=== PATIENT | male | born 1975 | race Caucasian/White ===

== ENCOUNTER 2018-02-10 20:38 | Inpatient (IN) | payer MEDICAID ==
[~2018-02-10] VITALS: Ht 175.3 cm; Wt 107.0 kg
[2018-02-10 20:58] VITALS: BP 177/96; PULSE 64; RESP 24; O2SAT 100
[2018-02-10 21:12] VITALS: BP 166/155; PULSE 61; RESP 16; O2SAT 99
[2018-02-10] MEDS ORDERED: NITROGLYCERIN 2% OINT 1 GM PACKET TOP ONE (21:15)
[2018-02-10] MEDS ORDERED: MORPHINE SULFATE 4 MG/ML INJ IV PUSH ONE (21:15)
[2018-02-10] MEDS ORDERED: SODIUM CHLORIDE 0.9% FLUSH 10 ML FLUSH IVF PRN (21:15)
[2018-02-10] MEDS: METOPROLOL TARTRATE 5 MG/5 ML VIAL IVS SCH ×3 (21:15→21:25)
[2018-02-10] MEDS ORDERED: SODIUM CHLORID 0.9% 500 ML INJ 500 ML IV ONE (21:15)
[2018-02-10 21:19] VITALS: BP_SYST 143; BP_SYST 146; BP_DIAS 89; BP_DIAS 99; O2SAT 100
[2018-02-10] MEDS ORDERED: HEPARIN SODIUM - IV 10,000 UNITS/10 ML VIAL IV PUSH ONE (21:30)
[2018-02-10] MEDS ORDERED: HEPARIN-D5W 25,000 U/250 ML 250 ML IV PRN (21:30)
--- NOTE | 2018-02-10 21:32 | PD ---
HPI Chief Complaint: Chest Pain Time Seen by Provider: 21:07 Travel History International Travel<30 days: No Contact w/Intl Traveler<30days: No Traveled to known affect area: No History of Present Illness HPI 42-year-old male previously seen at [place] in the ED, and found to have a slightly elevated troponin 0 0.08, and questionable ST changes on his EKG. Patient was going to be admitted, but did not want to travel by ambulance , and left AMA and traveled here. Patient was given aspirin, and nitroglycerin paste with improvement of his symptoms. Patient continues to have chest tightness but no pain at this time. He states his pain started this morning after working out at the gym and continued through the day. He states left arm pain yesterday which was different than normal. He noticed he was hypertensive through the day today which is why he went to the emergency department to be checked. He has family history of early cardiac disease in his family. Patient has no previous cardiac history. He is allergic to shrimp and iodine. [facility] Past Medical History Medical History: Denies Significant Hx Tetanus Vaccination: > 5 Years Influenza Vaccination: No ?: Not Past Surgical History Surgical History: No Previous Surgery Social History Alcohol Use: Yes (OCC) Tobacco Use: No Substance Use: No Allergies-Medications (Allergen,Severity, Reaction): Coded Allergies: iodine (Verified Allergy, Severe, 02/10/18) shrimp (Verified Allergy, Severe, 02/10/18) Reported Meds & Prescriptions Reported Meds & Active Scripts Active No Active Prescriptions or Reported Medications Review of Systems Except as stated in HPI: all other systems reviewed are Neg General / Constitutional: No: Fever Eyes: No: Visual changes HENT: No: Headaches Cardiovascular: Positive: Chest Pain or Discomfort, Dyspnea on exertion, Other (Left arm ache), No: Palpitations, Irregular Rhythm, Tachycardia, Diaphoresis, Syncope, Varicosities, Edema, Cyanosis, Varicosities, Phlebitis, Claudication Respiratory: No: Cough, Shortness of Breath, Wheezing Gastrointestinal: No: Nausea, Abdominal Pain Genitourinary: No: Dysuria Musculoskeletal: No: Pain Skin: No Rash Neurologic: No: Weakness Psychiatric: No: Depression Endocrine: No: Polydipsia Hematologic/Lymphatic: No: Easy Bruising Physical Exam Narrative GENERAL: Patient appears mildly anxious but otherwise in no acute distress. SKIN: Warm and dry. Normal color. Normal turgor. No diaphoresis. HEAD: Atraumatic. Normocephalic. EYES: Pupils equal and round. No scleral icterus. No injection or drainage. ENT: No nasal bleeding or discharge. Mucous membranes pink and moist. Pharynx is clear. Airway is patent NECK: Trachea midline. No JVD. Supple and nontender. CARDIOVASCULAR: Regular rate and rhythm. No murmurs gallops or rubs. RESPIRATORY: No accessory muscle use. Clear to auscultation. Breath sounds equal bilaterally. MUSCULOSKELETAL: Extremities without clubbing, cyanosis, or edema. No obvious deformities. NEUROLOGICAL: Awake and alert. No obvious cranial nerve deficits. Motor grossly within normal limits. Five out of 5 muscle strength in the arms and legs. Normal speech. PSYCHIATRIC: Appropriate mood and affect; insight and judgment normal. Data Data Last Documented VS Vital Signs Date Time Temp Pulse Resp B/P (MAP) Pulse Ox O2 Delivery O2 Flow Rate FiO2 02/10/18 21:19 146/99 (115) 143/89 (107) 02/10/18 21:19 100 Room Air 02/10/18 21:12 61 16 Orders Orders Electrocardiogram (02/10/18 21:11) Ckmb (Isoenzyme) Profile (02/10/18 21:11) Complete Blood Count With Diff (02/10/18 21:11) Comprehensive Metabolic Panel (02/10/18 21:11) Magnesium (Mg) (02/10/18 21:11) Prothrombin Time / Inr (Pt) (02/10/18 21:11) Act Partial Throm Time (Ptt) (02/10/18 21:11) Troponin I (02/10/18 21:11) Ecg Monitoring (02/10/18 21:11) Bilateral Bp Monitoring (02/10/18 21:11) Iv Access Insert/Monitor (02/10/18 21:11) Oximetry (02/10/18 21:11) Oxygen Administration (02/10/18 21:11) Morphine Inj (Morphine Inj) (02/10/18 21:15) Nitroglycerin 2% Oint (Nitroglycerin 2% (02/10/18 21:15) Sodium Chloride 0.9% Flush (Ns Flush) (02/10/18 21:15) Metoprolol Tartrate Inj (Lopressor Inj) (02/10/18 21:15) Sodium Chlorid 0.9% 500 Ml Inj (Ns 500 M (02/10/18 21:15) Heparin Inj (Heparin Inj) (02/11/18 03:30) Heparin Inj (Heparin Inj) (02/10/18 21:30) Heparin Inj (Heparin Inj) (02/11/18 03:30) Heparin-D5w 25,000 U/250 Ml (Heparin-D5w (02/10/18 21:30) Act Partial Throm Time (Ptt) (02/10/18 21:20) Prothrombin Time / Inr (Pt) (02/10/18 21:20) Cbc No Diff, Includes Plts (02/10/18 21:20) Cbc No Diff, Includes Plts (02/13/18 06:00) Act Partial Throm Time (Ptt) (02/11/18 04:20) Occult Blood (Hemoccult) Stool (02/10/18 21:20) CKMB (02/10/18 21:20) CKMB% (02/10/18 21:20) Consult Cardiology (02/10/18 ) Labs Laboratory Tests Test 02/10/18 21:20 White Blood Count 8.1 TH/MM3 Red Blood Count 5.35 MIL/MM3 Hemoglobin 14.7 GM/DL Hematocrit 44.8 % Mean Corpuscular Volume 83.7 FL Mean Corpuscular Hemoglobin 27.5 PG Mean Corpuscular Hemoglobin Concent 32.9 % Red Cell Distribution Width 13.4 % Platelet Count 147 TH/MM3 Mean Platelet Volume 11.3 FL Neutrophils (%) (Auto) 60.0 % Lymphocytes (%) (Auto) 30.4 % Monocytes (%) (Auto) 8.1 % Eosinophils (%) (Auto) 1.0 % Basophils (%) (Auto) 0.5 % Neutrophils # (Auto) 4.9 TH/MM3 Lymphocytes # (Auto) 2.5 TH/MM3 Monocytes # (Auto) 0.7 TH/MM3 Eosinophils # (Auto) 0.1 TH/MM3 Basophils # (Auto) 0.0 TH/MM3 CBC Comment DIFF FINAL Differential Comment Prothrombin Time 10.6 SEC Prothromb Time International Ratio 1.0 RATIO Activated Partial Thromboplast Time 24.6 SEC Blood Urea Nitrogen 23 MG/DL Creatinine 1.37 MG/DL Random Glucose 95 MG/DL Total Protein 6.8 GM/DL Albumin 4.1 GM/DL Calcium Level 8.9 MG/DL Magnesium Level 2.4 MG/DL Alkaline Phosphatase 87 U/L Aspartate Amino Transf (AST/SGOT) 29 U/L Alanine Aminotransferase (ALT/SGPT) 53 U/L Total Bilirubin 0.5 MG/DL Sodium Level 142 MEQ/L Potassium Level 3.5 MEQ/L Chloride Level 108 MEQ/L Carbon Dioxide Level 25.4 MEQ/L Anion Gap 9 MEQ/L Estimat Glomerular Filtration Rate 58 ML/MIN Total Creatine Kinase 190 U/L Creatine Kinase MB 3.1 NG/ML Troponin I 0.07 NG/ML MDM Medical Decision Making Medical Screen Exam Complete: Yes Emergency Medical Condition: Yes Medical Record Reviewed: Yes Differential Diagnosis Unstable angina. Acute coronary syndrome. SC. Narrative Course Patient appears medically stable at time of exam. EKG is repeated with ST elevations in the ventricle leads are noted and more pronounced than previous EKG at 1854. Labs are repeated including CBC, CMP, cardiac panel and coagulation studies. IV access is obtained and the patient is given 2 mg morphine IV, 5 mg metoprolol IV 3 per protocol, and 1 inch nitroglycerin paste is placed topically. Patient is discussed with Dr. Andrade who recommends heparinization. IV heparin is ordered per protocol for SC with loading bolus. Chest x-ray is not repeated as he just had one until toenail which was unremarkable. CBC is unremarkable except for a platelet count of 147. Coagulation studies show PT of 10.6, INR is 1.0, APTT is 24.6 Chemistries show normal electrolytes except for chloride of 108, BUNs 23, creatinine is 1.37, GFR is 58. Second troponin is still elevated at 0.[address] Huitron, the washery boss and the patient is discussed. He feels the patient should be heparinized, continued on nitroglycerin paste, but beta-maximino should be held secondary to the patient's low heart rate. He recommends admitting the patient for serial enzymes and he will follow-up with them in the morning. Consult for Dr. Huitron is placed. Calls placed to the hospitalist for admission. Diagnosis Primary Impression: ACS (acute coronary syndrome) Additional Impressions: Elevated troponin NSTEMI (non-ST elevated myocardial infarction) Admitting Information Admitting Physician Requests: Admit Scripts No Active Prescriptions or Reported Meds Condition: Stable Yoselyn,Serjio F. PA Feb 10, 2018 21:32
--- NOTE | 2018-02-10 21:35 | PD ---
Physical Exam Narrative GENERAL: SKIN: Warm and dry. HEAD: Atraumatic. Normocephalic. EYES: Pupils equal and round. No scleral icterus. No injection or drainage. ENT: No nasal bleeding or discharge. Mucous membranes pink and moist. NECK: Trachea midline. No JVD. CARDIOVASCULAR: Regular rate and rhythm. RESPIRATORY: No accessory muscle use. Clear to auscultation. Breath sounds equal bilaterally. GASTROINTESTINAL: Abdomen soft, non-tender, nondistended. MUSCULOSKELETAL: Extremities without clubbing, cyanosis, or edema. No obvious deformities. NEUROLOGICAL: Awake and alert. No obvious cranial nerve deficits. Motor grossly within normal limits. Five out of 5 muscle strength in the arms and legs. Normal speech. PSYCHIATRIC: Appropriate mood and affect; insight and judgment normal. Data Data Last Documented VS Vital Signs Date Time Temp Pulse Resp B/P (MAP) Pulse Ox O2 Delivery O2 Flow Rate FiO2 02/10/18 21:19 146/99 (115) 143/89 (107) 02/10/18 21:19 100 Room Air 02/10/18 21:12 61 16 Orders Orders Electrocardiogram (02/10/18 21:11) Ckmb (Isoenzyme) Profile (02/10/18 21:11) Complete Blood Count With Diff (02/10/18 21:11) Comprehensive Metabolic Panel (02/10/18 21:11) Magnesium (Mg) (02/10/18 21:11) Prothrombin Time / Inr (Pt) (02/10/18 21:11) Act Partial Throm Time (Ptt) (02/10/18 21:11) Troponin I (02/10/18 21:11) Ecg Monitoring (02/10/18 21:11) Bilateral Bp Monitoring (02/10/18 21:11) Iv Access Insert/Monitor (02/10/18 21:11) Oximetry (02/10/18 21:11) Oxygen Administration (02/10/18 21:11) Morphine Inj (Morphine Inj) (02/10/18 21:15) Nitroglycerin 2% Oint (Nitroglycerin 2% (02/10/18 21:15) Sodium Chloride 0.9% Flush (Ns Flush) (02/10/18 21:15) Metoprolol Tartrate Inj (Lopressor Inj) (02/10/18 21:15) Sodium Chlorid 0.9% 500 Ml Inj (Ns 500 M (02/10/18 21:15) Heparin Inj (Heparin Inj) (02/11/18 03:30) Heparin Inj (Heparin Inj) (02/10/18 21:30) Heparin Inj (Heparin Inj) (02/11/18 03:30) Heparin-D5w 25,000 U/250 Ml (Heparin-D5w (02/10/18 21:30) Act Partial Throm Time (Ptt) (02/10/18 21:20) Prothrombin Time / Inr (Pt) (02/10/18 21:20) Cbc No Diff, Includes Plts (02/10/18 21:20) Cbc No Diff, Includes Plts (02/13/18 06:00) Act Partial Throm Time (Ptt) (02/11/18 04:20) Occult Blood (Hemoccult) Stool (02/10/18 21:20) MDM Medical Record Reviewed: Yes Supervised Visit with SAMMY: Yes Narrative Course I, Dr. BROWN, have reviewed the advance practice practitioner's documentation and am in agreement, met with the patient face to face, made the diagnosis, and the medical decision making was done by me. The patient was initially evaluated by [SHAUN]. Please see their complete history and physical. *My assessment and Findings: The patient presents with During the course of the patient's emergency department visit, the patient's history, examination, and differential diagnosis were reviewed with the patient. The patient was placed on a security monitor with oximetry and frequent blood pressure monitoring. The patient had IV access obtained and blood work sent for analysis. The patient was initially provided [METOPROLOL 5MG IV PER PROTOCOL, 1 INCH NTG PASTE, MORPHINE 2MG IV, heparin bolus and drip]. The patient's laboratory studies were reviewed and remarkable for [CBC did not show any leukocytosis anemia or thrombocytosis, platelet count was normal no left shift..... Coagulation profile is within normal limits..... Electrolytes show elevated creatinine 1.4, slightly low GFR 56, also CK-MB of 4.0 and troponin of 0.08 both of which are slightly elevated]. Of note the patient is states that he has allergy to shrimp/iodine Radiology studies were reviewed and remarkable for [chest x-ray performed melatonin ER and read by radiologist as no acute disease] Scripts No Active Prescriptions or Reported Meds Bertin Brown MD Feb 10, 2018 21:35
[2018-02-10 21:43] LABS: AUTOMATED NEUTROPHIL # 4.9 TH/MM3 (1.8-7.7); BASOPHIL % 0.5 % (0.0-2.0); EOSINOPHIL # 0.1 TH/MM3 (0-0.4); HEMATOCRIT 44.8 % (39.0-51.0); HEMOGLOBIN 14.7 GM/DL (13.0-17.0); LYMPH % 30.4 % (9.0-44.0); LYMPHOCYTE # 2.5 TH/MM3 (1.0-4.8); MEAN CELL VOLUME 83.7 FL (80.0-100.0); MEAN CORPUSCULAR HEMOGLOBIN 27.5 PG (27.0-34.0); MEAN CORPUSCULAR HGB CONC 32.9 % (32.0-36.0); MEAN PLATELET VOLUME 11.3 FL (7.0-11.0); MONO % 8.1 % (0.0-8.0); MONOCYTE # 0.7 TH/MM3 (0-0.9); PLATELET COUNT 147 TH/MM3 (150-450); RED BLOOD COUNT 5.35 MIL/MM3 (4.50-5.90); RED CELL DISTRIBUTION WIDTH 13.4 % (11.6-17.2); WHITE BLOOD COUNT 8.1 TH/MM3 (4.0-11.0)
[2018-02-10 21:59] LABS: PROTHROMBIN TIME - PATIENT 10.6 SEC (9.8-11.6)
[2018-02-10 22:04] LABS: ALBUMIN 4.1 GM/DL (3.4-5.0); BICARBONATE 25.4 MEQ/L (21.0-32.0); BLOOD UREA NITROGEN 23 MG/DL (7-18); CALCIUM 8.9 MG/DL (8.5-10.1); CHLORIDE 108 MEQ/L (98-107); CREATININE 1.37 MG/DL (0.60-1.30); GLOMERULAR FILTRATION RATE 58 ML/MIN (>89); GLUCOSE,RANDOM 95 MG/DL (74-106); MAGNESIUM 2.4 MG/DL (1.5-2.5); SODIUM (NA) 142 MEQ/L (136-145)
[2018-02-10 22:06] LABS: ALT (GPT) 53 U/L (12-78); AST (GOT) 29 U/L (15-37)
[2018-02-10 22:10] LABS: ALKALINE PHOSPHATASE 87 U/L (45-117); TOTAL BILIRUBIN ADULT 0.5 MG/DL (0.2-1.0); TOTAL PROTEIN 6.8 GM/DL (6.4-8.2); TROPONIN I 0.07 NG/ML (0.02-0.05)
[2018-02-10 23:00] VITALS: BP 136/75; PULSE 68; RESP 16; O2SAT 98
[2018-02-10] MEDS ORDERED: SODIUM CHLORIDE 0.9% FLUSH 10 ML FLUSH IV FLUSH PRN (23:00)
[2018-02-10] MEDS ORDERED: NALOXONE HCL 0.4 MG/ML AMP IV PUSH PRN (23:00)
[2018-02-10] MEDS ORDERED: ASPIRIN 325 MG TAB PO SCH (23:00)
[2018-02-10] MEDS: SODIUM CHLOR 0.9% 1000 ML INJ 1,000 ML IV SCH (23:52)
--- NOTE | 2018-02-10 23:54 | HHI.HP ---
[facility] Unknown Admission Diagnosis CHest pain with Elevated Troponin Diagnoses: Travel History International Travel<30 Days: No Contact w/Intl Traveler <30 Da: No Traveled to Known Affected Are: No History of Present Illness 42-year-old male with no significant past medical history presents the emergency department for the evaluation of chest tightness. The patient reports he was taking his blood pressure at home yesterday and it was 180s/ 100s. He then began to have a substernal nonradiating chest tightness which persisted through today. He went to the [facility] emergency department where he was found to be hypertensive and have an elevated troponin of 0.08. The patient then drove to [facility] where repeat troponin was 0.07. He reports his chest pain was relieved with nitro patch. The patient denies any accompanying diaphoresis or shortness of breath. No palpitations. No fever/chills. No abdominal pain. No nausea/vomiting/diarrhea. No lateralizing signs/symptoms. The patient reports he went to the gym this morning and ran 4 miles on the treadmill without incident. Review of Systems Except as stated in HPI: all other systems reviewed are Neg Past Family Social History Past Medical History None Past Surgical History None Reported Medications Reported Meds & Active Scripts Active No Active Prescriptions or Reported Medications Allergies: Coded Allergies: iodine (Verified Allergy, Severe, 02/10/18) shrimp (Verified Allergy, Severe, 02/10/18) Family History Father with CAD Social History Occasional alcohol. Denies tobacco and illicit drugs. Physical Exam Vital Signs Vital Signs Date Time Temp Pulse Resp B/P (MAP) Pulse Ox O2 Delivery O2 Flow Rate FiO2 02/10/18 23:39 02/10/18 23:00 68 16 136/75 (95) 98 Room Air 02/10/18 21:19 146/99 (115) 143/89 (107) 02/10/18 21:19 100 Room Air 02/10/18 21:12 61 16 166/155 (159) 99 Room Air 02/10/18 20:58 64 24 177/96 (123) 100 Physical Exam GENERAL: male sitting up in bed SKIN: No rashes, ecchymoses or lesions. Cool and dry. HEAD: Atraumatic. Normocephalic. No temporal or scalp tenderness. EYES: Pupils equal round and reactive. Extraocular motions intact. No scleral icterus. No injection or drainage. ENT: Nose without bleeding, purulent drainage or septal hematoma. Throat without erythema, tonsillar hypertrophy or exudate. Uvula midline. Airway patent. NECK: Trachea midline. No JVD or lymphadenopathy. Supple, nontender, no meningeal signs. CARDIOVASCULAR: Regular rate and rhythm without murmurs, gallops, or rubs. RESPIRATORY: Clear to auscultation. Breath sounds equal bilaterally. No wheezes , rales, or rhonchi. GASTROINTESTINAL: Abdomen soft, non-tender, nondistended. No hepato-splenomegaly , or palpable masses. No guarding. MUSCULOSKELETAL: Extremities without clubbing, cyanosis, or edema. No joint tenderness, effusion, or edema noted. No calf tenderness. NEUROLOGICAL: Awake and alert. Cranial nerves II through XII intact. Motor and sensory grossly within normal limits. Normal speech. Laboratory Laboratory Tests Test 02/10/18 21:20 White Blood Count 8.1 Red Blood Count 5.35 Hemoglobin 14.7 Hematocrit 44.8 Mean Corpuscular Volume 83.7 Mean Corpuscular Hemoglobin 27.5 Mean Corpuscular Hemoglobin Concent 32.9 Red Cell Distribution Width 13.4 Platelet Count 147 Mean Platelet Volume 11.3 Neutrophils (%) (Auto) 60.0 Lymphocytes (%) (Auto) 30.4 Monocytes (%) (Auto) 8.1 Eosinophils (%) (Auto) 1.0 Basophils (%) (Auto) 0.5 Neutrophils # (Auto) 4.9 Lymphocytes # (Auto) 2.5 Monocytes # (Auto) 0.7 Eosinophils # (Auto) 0.1 Basophils # (Auto) 0.0 CBC Comment DIFF FINAL Differential Comment Prothrombin Time 10.6 Prothromb Time International Ratio 1.0 Activated Partial Thromboplast Time 24.6 Blood Urea Nitrogen 23 Creatinine 1.37 Random Glucose 95 Total Protein 6.8 Albumin 4.1 Calcium Level 8.9 Magnesium Level 2.4 Alkaline Phosphatase 87 Aspartate Amino Transf (AST/SGOT) 29 Alanine Aminotransferase (ALT/SGPT) 53 Total Bilirubin 0.5 Sodium Level 142 Potassium Level 3.5 Chloride Level 108 Carbon Dioxide Level 25.4 Anion Gap 9 Estimat Glomerular Filtration Rate 58 Total Creatine Kinase 190 Creatine Kinase MB 3.1 Troponin I 0.07 Result Diagram: 02/10/18211902/10/182119 Caprini VTE Risk Assessment Arian VTE Risk Assessment: No/Low Risk (score <= 1) Evansrini Risk Assessment Model Point Value = 1 Point Value = 2 Point Value = 3 Point Value = 5 Age 41-60 Minor surgery BMI > 25 kg/m2 Swollen legs Varicose veins or History of unexplained or recurrent spontaneous Oral contraceptives or hormone replacement Sepsis (< 1 month) Serious lung disease, including pneumonia (< 1 month) Abnormal pulmonary function Acute myocardial infarction Congestive heart failure (< 1 month) History of inflammatory bowel disease Medical patient at bed rest Age 61-74 Arthroscopic surgery Major open surgery (> 45 min) Laparoscopic surgery (> 45 min) Malignancy Confined to bed (> 72 hours) Immobilizing plaster cast Central venous access Age >= 75 History of VTE Family history of VTE Factor V Leiden Prothrombin [id number] Lupus anticoagulant Anticardiolipin antibodies Elevated serum homocysteine Heparin-induced thrombocytopenia Other congenital or acquired thrombophilia Stroke (< 1 month) Elective arthroplasty Hip, pelvis, or leg fracture Acute spinal cord injury (< 1 month) Prophylaxis Regimen Total Risk Factor Score Risk Level Prophylaxis Regimen 0-1 Low Early ambulation 2 Moderate Order ONE of the following: *Sequential Compression Device (SCD) *Heparin 5000 units SQ BID 3-4 Higher Order ONE of the following medications: *Heparin 5000 units SQ TID *Enoxaparin/Lovenox 40 mg SQ daily (WT < 150 kg, CrCl > 30 mL/min) *Enoxaparin/Lovenox 30 mg SQ daily (WT < 150 kg, CrCl > 10-29 mL/min) *Enoxaparin/Lovenox 30 mg SQ BID (WT < 150 kg, CrCl > 30 mL/min) AND/OR *Sequential Compression Device (SCD) 5 or more Highest Order ONE of the following medications: *Heparin 5000 units SQ TID (Preferred with Epidurals) *Enoxaparin/Lovenox 40 mg SQ daily (WT < 150 kg, CrCl > 30 mL/min) *Enoxaparin/Lovenox 30 mg SQ daily (WT < 150 kg, CrCl > 10-29 mL/min) *Enoxaparin/Lovenox 30 mg SQ BID (WT < 150 kg, CrCl > 30 mL/min) AND *Sequential Compression Device (SCD) Assessment and Plan Assessment and Plan Assessment/plan: 1. NSTEMI EKG shows sinus bradycardia without ST segment elevations or depressions, personally reviewed Troponin 0.08 -->0.07, repeat pending Cardiology consulted, appreciate assistance Heparin bolus and drip 2. Acute kidney injury BUN/creatinine 23/1.37 No baseline for comparison IV fluid hydration Monitor renal function FEN N.p.o. NS at 84 cc/hour Electrolytes: Monitor and replete as needed Heparin drip Physician Certification 2 Midnight Certification Type: Admission for Inpatient Services Order for Inpatient Services The services are ordered in accordance with Medicare regulations or non- Medicare payer requirements, as applicable. In the case of services not specified as inpatient-only, they are appropriately provided as inpatient services in accordance with the 2-midnight benchmark. Estimated LOS (days): 2 2 days is the estimated time the patient will need to remain in the hospital, assuming treatment plan goals are met and no additional complications. Post-Hospital Plan: Not yet determined Kendal Sebastian MD Feb 10, 2018 23:54
[2018-02-10 23:57] VITALS: BP 121/78; PULSE 53; RESP 16; TEMP 97.5; O2SAT 99
[2018-02-11 01:00] VITALS: PULSE 45
[2018-02-11] MEDS ORDERED: HEPARIN SODIUM - IV 10,000 UNITS/10 ML VIAL IV PUSH PRN ×2 (03:30)
[2018-02-11 04:03] VITALS: BP 151/92; PULSE 62; RESP 16; O2SAT 100
[2018-02-11] MEDS ORDERED: ACETAMINOPHEN 325 MG TAB PO PRN (04:15)
[2018-02-11] MEDS ORDERED: ALPRAZolam 0.25 MG TAB PO ONE (04:15)
[2018-02-11 04:20] VITALS: BP 134/87; PULSE 53; RESP 16; TEMP 97.3; O2SAT 100
[2018-02-11] MEDS: NITROGLYCERIN 2% OINT 1 GM PACKET TOP SCH ×2 (04:25→12:00)
[2018-02-11 05:12] LABS: AUTOMATED NEUTROPHIL # 3.2 TH/MM3 (1.8-7.7); BASOPHIL % 0.5 % (0.0-2.0); EOSINOPHIL # 0.1 TH/MM3 (0-0.4); EOSINOPHIL % 1.4 % (0.0-4.0); LYMPH % 40.1 % (9.0-44.0); LYMPHOCYTE # 2.6 TH/MM3 (1.0-4.8); MEAN CELL VOLUME 84.3 FL (80.0-100.0); MEAN CORPUSCULAR HEMOGLOBIN 28.1 PG (27.0-34.0); MEAN CORPUSCULAR HGB CONC 33.3 % (32.0-36.0); MEAN PLATELET VOLUME 11.3 FL (7.0-11.0); MONO % 7.2 % (0.0-8.0); MONOCYTE # 0.5 TH/MM3 (0-0.9); NEUT % 50.8 % (16.0-70.0); PLATELET COUNT 125 TH/MM3 (150-450); RED BLOOD COUNT 4.98 MIL/MM3 (4.50-5.90); RED CELL DISTRIBUTION WIDTH 13.5 % (11.6-17.2); WHITE BLOOD COUNT 6.4 TH/MM3 (4.0-11.0)
[2018-02-11 05:15] VITALS: PULSE 45
[2018-02-11 05:31] LABS: BICARBONATE 22.1 MEQ/L (21.0-32.0); CALCIUM 8.2 MG/DL (8.5-10.1); CREATININE 1.25 MG/DL (0.60-1.30)
[2018-02-11 05:36] LABS: TROPONIN I 0.04 NG/ML (0.02-0.05)
[2018-02-11 08:13] VITALS: BP 135/85; PULSE 68; RESP 16; TEMP 97.6; O2SAT 100
[2018-02-11] MEDS ORDERED: SODIUM CHLORIDE 0.9% FLUSH 10 ML FLUSH IV FLUSH SCH ×2 (09:00→21:00)
--- NOTE | 2018-02-11 09:55 | EKG ---
Date Performed: 02/10/2018 Time Performed: 21:16:44 PTAGE: 42 years EKG: SINUS BRADYCARDIA WITH FIRST DEGREE AV BLOCK ST ELEVATION, PROBABLY EARLY REPOLARIZATION AB NORMAL ECG PREVIOUS TRACING : 11/13/1997 21.13 Compared to the prior study, nonspecific T-wave changes hav e resolved. Early repolarization is now noted. DOCTOR: Amrik Morejon Interpretating Date/Time 02/11/2018 09:53:57
[2018-02-11] MEDS: SODIUM CHLOR 0.9% 1000 ML INJ 1,000 ML IV SCH (11:58)
[2018-02-11] MEDS ORDERED: MIDAZOLAM HCL 2 MG/2 ML VIAL IV PUSH ONE (15:00)
[2018-02-11] MEDS ORDERED: methylPREDNISolone SOD SUCC 125 MG/2 ML VIAL IV PUSH ONE (15:00)
[2018-02-11] MEDS ORDERED: MIDAZOLAM HCL 2 MG/2 ML VIAL ONE (15:03)
[2018-02-11] MEDS ORDERED: methylPREDNISolone SOD SUCC 125 MG/2 ML VIAL ONE (15:03)
[2018-02-11] MEDS ORDERED: diphenhydrAMINE HCL 50 MG/ML VIAL ONE (15:03)
[2018-02-11] MEDS ORDERED: HEPARIN-NS/PF INJ 500 ML ONE (15:03)
[2018-02-11] MEDS ORDERED: FAMOTIDINE 20 MG/2 ML VIAL ONE (15:03)
--- NOTE | 2018-02-11 15:19 | MB ---
cc: Magdiel Huitron MD DATE: 02/11/2018 HISTORY OF PRESENT ILLNESS: Pineda is a pleasant 42-year-old gentleman who has been experiencing chest pain, although he states he can walk up to 4 miles on a treadmill. Apparently, he was seen in [place], left AMA, came to [place] emergency room yesterday. Troponin in [place] was 0.08. It was reported that he also had ST changes on EKG. Otherwise, denies any fever, chills, cough, GI or bleeding, PND, orthopnea, syncope or dizziness. PAST MEDICAL HISTORY: Per history of present illness. SOCIAL HISTORY: Does drink alcohol. Denies tobacco use. ALLERGIES: IODINE AND SHRIMP. MEDICATIONS IN THE HOSPITAL: IV heparin, 1 inch nitroglycerine paste, aspirin 325 x 1. PHYSICAL EXAMINATION: VITAL SIGNS: Blood pressure 135/85, pulse 68, respiratory rate 16, temperature 97.6. GENERAL: He is alert and oriented x3, in no acute distress. NECK: Supple. No JVD, no bruit. CARDIOVASCULAR: S1, S2. No murmurs, rubs, gallops. LUNGS: Clear to auscultation bilaterally. ABDOMEN: Soft, nontender, nondistended, with positive bowel sounds. EXTREMITIES: No lower extremity edema. LABORATORY DATA: White count 6.4, hemoglobin 14.0, hematocrit 42.0, platelet count is 125. INR is 1.0. PTT at 10:45 today is 33. Sodium 144, potassium 3.6, chloride 112, bicarbonate 22.1, BUN 21, creatinine 1.25. Troponin is 0.07, 0.04 and 0.03. CK is 190. Chest x-ray: No acute disease, and his EKG shows sinus bradycardia at 56 beats per minute with J-point elevation in the anterolateral leads consistent with repolarization abnormality. DIAGNOSES: 1. [id number] myocardial infarction. 2. Abnormal electrocardiogram. DISCUSSION: I have advised the patient to have a left heart catheterization due to the non-STEMI and the persistent chest pain with chest pain at rest, which is new onset. [place] [employer] class IV angina. I have explained to the patient and his significant other that the risk of catheterization and PCI has a 5-10% chance of , stroke, heart attack, bleeding, infection, need for bypass surgery, surgery, dialysis, blood transfusion, bleeding, infection, anaphylaxis and arrhythmia. The patient understands and consents to the procedure. I have advised the ER nurse to give him 120 mg of IV Solu-Medrol now and also 1 mg of Versed after he signs consent. The plan will be to give 50 of IV Benadryl and 20 of IV Pepcid when he arrives to the [place]. Further recommendations pending the results of his left heart catheterization. MD RICK Moore/SB , 02:57 PM , 03:18 PM
[2018-02-11] MEDS ORDERED: BACITRACIN OINT 0.9 GM PKT TOP ONE (15:45)
[2018-02-11] MEDS ORDERED: MISC INFORMATION XX ONE (15:45)
[2018-02-11] MEDS ORDERED: SODIUM CHLORIDE 0.9% FLUSH 10 ML FLUSH IV FLUSH PRN (15:45)
--- NOTE | 2018-02-11 15:52 | CATHPROC ---
[employer] HIS Report Study Information Study Number Admission Scheduled Start Study Start [id number] Feb 10 2018 10:45PM 02/11/2018 Feb 11 2018 2:41PM Sabina Service Cardiac Catheterization Admit Source Facility Department Emergency department [facility] - [facility] Physician and Clinical Staff Initial Magdiel Hernandez [place] Adina Anton RN Other cathlab, cathlab Recorder Mika Downs RCIS(BS) Scrub Glo [place],RT(R) TECH2 Procedures Performed Procedure Location (Site) Vessel Name Coronary Angiograms LCA Left Coronary Coronary Angiograms RCA Right Coronary L Heart Cath LV Gram-hand inj. LV LV Ventricle Equipment Time Charging Operator Description Size Mfg Part Number Used/Scraped TRANSDUCER, TRUWAVE [id number] 14:44 CASEY SALVADOR * Used W/STOCKCOCK *[id number] [id number] *[id number] *[id number] 14:44 Convene BLANKET,WARM AIR CCL * Used *[id number] 14:44 Convene PACK, CCL CUSTOM * Used *[id number] 14:44 wooju PACER PEN, SKIN DUAL W/ RULER * Used *[id number] 14:44 Vaddio WIRE, 3MMJ .035 180CM 180CM Used *[id number] 14:44 NAMIC MANIFOLD, 4 PORT * Used *[id number] 14:44 NYCOMED OMNIPAQUE, 350 MG, 150ML 150ML [id number] Used [id number] 14:44 TERUMO MEDICAL SHEATH, FR4 TERUMO (10CM) FR 4 Used *[id number] History: Allergies Allergy Reaction iodine shrimp History: Risk Factors Family History of Hypertension Dyslipidemia Previous GA Previous Heart Failure Premature CAD No No Yes No No Prior Valve Prior PCI Prior CABG Surgery No No No Cerebrovascular Peripheral Artery Chronic Lung On Dialysis Diabetes Disease Disease Disease No No No Yes No History: Symptoms/Diagnosis Selection Items Angina-unstable Chest pain History: Stress Tests Stress or Imaging Studies Performed No History: Other Current Smoker No Labs Hgb (g/dl) Hct (%) WBC (l/cumm) Platelets (thousands) 11.60-17.00 35.00-51.00 4.00-11.00 150.00-450.00 14.7 44.8 6.4 125 Glucose (mg/dl) BUN (mg/dl) Creatinine (mg/dl) BUN:Creatinine (1:x) 74.00-106.00 7.00-18.00 0.50-1.30 10.00-20.00 93 21 1.2 17.5 Na (meq/l) K (meq/l) 136.00-145.00 3.50-5.10 144 3.6 INR (PTT:PT) 0.90-1.10 1 Troponin I (ng/ml) CPK-MB (ng/ML) 0.02-0.05 0.50-3.60 0.04 Not Drawn Medication Medication Total Dose (Bolus/Oral) Medication Total Dosage/Unit 1% XYLOCAINE 20 mL BENADRYL 50 mg FENTANYL 25 mcg PEPCID 20 mg SOLU-MEDROL 125 mg VERSED 1 mg Medications (Bolus/Oral) Medication Time Given Dosage/Unit Administered By Reason BENADRYL 02/11/2018 3:09:28 PM 50 mg Hesher, Adina 50 mg BENADRYL given in lab by Adina Anton RN in Right Wrist via Peripheral IV. Ordered by Magdiel Parry. PEPCID 02/11/2018 3:10:59 PM 20 mg Hesher, Adina 20 mg PEPCID given in lab by Adina Anton RN. Ordered by Magdiel Huitron. SOLU-MEDROL 02/11/2018 3:11:34 PM 125 mg Hesher, Adina 125 mg SOLU-MEDROL given in lab by Adina Anton RN in Right Wrist via Peripheral IV. Ordered by Magdiel Horowitz. VERSED 02/11/2018 3:18:20 PM 1 mg Hesher, Adina 1 mg VERSED given in lab by Adina Anton RN in Right Wrist via Peripheral IV. Ordered by Magdiel Huitron. FENTANYL 02/11/2018 3:19:54 PM 25 mcg Desean, Adina 25 mcg FENTANYL given in lab by Adina Anton RN in Right Wrist via Peripheral IV. Ordered by Magdiel Peres. 1% XYLOCAINE 02/11/2018 3:27:40 PM 20 mL Magdiel Huitron 20 mL 1% XYLOCAINE given in lab by Magdiel Huitron in Right Groin via Subcutaneous. Ordered by Cross man, Magdiel. Medication (Drip) Medication Time Given Dosage/Unit Concentration/Unit Diluent (ml) Solution IV Solutions 02/11/2018 3:04:10 PM 0 mL (IV) 1000 NaCl .9 Patient arrived on IV Solutions in Left Antecubital via Peripheral IV. Pump/Drip Flow = 20 ml/hr usin g NaCl .9. Initial Case Assessment Cardiovascular HR Rhythm NIBP Chest Pain 67 NSR 192/104 0 Edema Present Skin color Skin None Normal Warm Dry Circulatory - Right Pulses Dorsalis Pedis Femoral 2 3 Scale (0,1,2,3,4,d) Circulatory - Left Pulses Dorsalis Pedis Femoral 2 3 Scale (0,1,2,3,4,d) Neurological State Oriented to time-place- Alert Moves all extremities person Respiration - General Respiration Rate SpO2 (%) (B/min) 15 99 Final Case Assessment Cardiovascular HR Rhythm NIBP Chest Pain 61 NSR 179/95 0 Edema Present Skin color Skin None Normal Warm Dry Circulatory - Right Pulses Dorsalis Pedis Femoral 2 3 Scale (0,1,2,3,4,d) Circulatory - Left Pulses Dorsalis Pedis Femoral 2 3 Scale (0,1,2,3,4,d) Neurological State Oriented to time-place- Alert Moves all extremities person Respiration - General Respiration Rate SpO2 (%) (B/min) 15 99 Chronological Log Time Study Chronological Log 14:53:21 MD arrived. 14:59:18 Patient arrived via Bed. 14:59:18 Patient Name, D.O.B, / Armband Verified By R.N. 14:59:19 Consent signed by the physician and the patient and verified by the [facility] staff. 14:59:20 Pre-op and post- op instructions given; patient acknowledges understanding of instructions. 14:59:21 Verbal Stimulation=2 Physical Stimulation=2 Airway=2 Respiration=2 TOTAL=8. (0=absent, 1=li mited, 2=present) 14:59:21 Presedation assessment performed by [facility] RN. 14:59:22 Immediate Presedation assesment performed by physician. 14:59:23 Patient has been NPO for More than 6Hrs. 14:59:23 Skin Breakdown- NONE PER PATIENT 14:59:24 Patient Warmer Placed on the Table. 14:59:24 Xochitl Prominences Protected 14:59:26 A # 20 IV was noted in the Wrist (right). Grade = 0 15:04:04 A # 20 IV was noted in the Antecubital (right). Grade = 0 15:04:10 Patient arrived on IV Solutions in Left Antecubital via Peripheral IV. Pump/Drip Flow = 20 ml/hr using NaCl .9. 15:04:14 History and physical on the chart or being dictated. 15:04:16 Reference ECG taken Vitals capture started with the following parameters, Patient=Adult, Interval=5 min, Initial Pr njjgnu=544 mmHg, 15:04:17 Deflation Rate=5 mmHg, Cuff placed on Left Arm 15:05:42 HR=74 bpm, FOPB=600/104 mmhg, PzH4=679.0 %, Resp=16 B/min, Pain=0, Vasile=10, Padilla=2 Assessment: Initial Case, HR=67 BPM, Rhythm=NSR, UDLG=068/104 mmhg, Chest Pain=0, Edema=None, Color=Normal, Skin = Warm, Dry Right Pulses: Morgan Ped=2, Femoral=3 15:06:04 Left Pulses: Morgan Ped=2, Femoral=3 Neurological: State=Alert, Ox3, TAYLOR Respiration: Resp=15 B/min, SpO2=99 % 15:07:04 HR=72 bpm, HRCL=063/117 mmhg, CxK6=056.0 %, Resp=14 B/min, Pain=0, Vasile=10, Padilla=2 15:09:05 HR=68 bpm, HQCE=769/115 mmhg, JiJ0=295.0 %, Resp=19 B/min, Pain=0, Vasile=10, Padilla=2 15:09:28 50 mg BENADRYL given in lab by Adina Anton, RN in Right Wrist via Peripheral IV. Ordered by Magdiel Huitron. 15:10:59 20 mg PEPCID given in lab by Adina Anton, CARLOS ALBERTO. Ordered by Magdiel Huitron. 15:11:04 HR=66 bpm, POZS=251/105 mmhg, IlP2=435.0 %, Resp=20 B/min, Pain=0, Vasile=10, Padilla=2 125 mg SOLU-MEDROL given in lab by Adina Anton, RN in Right Wrist via Peripheral IV. Ordered by Beto Huitron:11:34 Magdiel. 15:12:14 Bilateral groins prepped with 2% chlorhexidine, and draped after a 3 minute waiting time. 15:13:09 HR=75 bpm, GCAO=340/114 mmhg, SpO2=99.0 %, Resp=12 B/min, Pain=0, Vasile=10, Padilla=2 15:13:26 Contrast Scanned 15:13:27 Immediate Presedation assesment performed by physician. 15:15:46 HR=68 bpm, XTQF=458/109 mmhg, SpO2=99.0 %, Resp=19 B/min, Pain=0, Vasile=10, Padilla=2 15:16:28 Pressure channel 1 zeroed. 15:17:08 HR=72 bpm, PSQU=554/115 mmhg, YqA2=898.0 %, Resp=14 B/min 15:18:20 1 mg VERSED given in lab by Adina Anton, CARLOS ALBERTO in Right Wrist via Peripheral IV. Ordered by Magdiel Huitron. 15:19:05 HR=70 bpm, GEIG=306/110 mmhg, FzA4=020.0 %, Resp=16 B/min 15:19:54 25 mcg FENTANYL given in lab by Adina Anton, ACRLOS ALBERTO in Right Wrist via Peripheral IV. Ordere d by Magdiel Huitron. 15:21:06 HR=64 bpm, CZVC=887/98 mmhg, HiY4=561.0 %, Resp=19 B/min 15:23:00 HR=62 bpm, GMZF=305/90 mmhg, SpO2=95.0 %, Resp=18 B/min 15:24:55 HR=58 bpm, JATF=296/96 mmhg, SpO2=98 %, Resp=12 B/min, Pain=0, Vasile=10, Padilla=2 15:26:58 HR=58 bpm, VHZG=472/100 mmhg, SpO2=94.0 %, Resp=14 B/min, Pain=0, Vasile=10, Padilla=2 Time Out. Correct patient, correct procedure, correct physician, labs, allergies, and equipment verified with labview programmer 15:27:18 team present. Fire risk assesment completed (see hard stop sheet for coding). Time Out Conc urred by MD and individual staff in procedure. 15:27:39 Case Start 20 mL 1% XYLOCAINE given in lab by Magdiel Huitron in Right Groin via Subcutaneous. Ordered by Tomy, 15::40 Magdiel. 15::43 Access site was Right Femoral Artery. 15::58 A SHEATH, FR4 TERUMO (10CM) FR 4 was advanced into the Fem Art (right) using the Percutaneo us technique. A JR 4.0 INFINITI CATHETER FR 4 was advanced over a wire. OMNIPAQUE, 350 MG, 150ML 150ML was us ed for 15:29:01 injections. 15:29:50 HR=60 bpm, WFJW=719/93 mmhg, SpO2=98.0 %, Resp=13 B/min, Pain=0, Vasile=10, Padilla=2 Recorded Pressure: LV, HR=56, Condition=Condition 1 15:30:05 (Left Ventricle) LV 163/6/21 15:30:08 The LV was manually injected with 10 cc's and visualized. OMNIPAQUE, 350 MG, 150ML 150ML us ed. Recorded Pressure: LV, Ao, HR=57, Condition=Condition 1 15:30:18 (Left Ventricle) LV 178/7/29, (Aorta) Ao 177/98/130 15:30:40 The RCA was injected and visualized at various angles. OMNIPAQUE, 350 MG, 150ML 150ML used . 15:30:52 Catheter was removed A JL 4.0 INFINITI CATHETER FR 4 was advanced over a wire. OMNIPAQUE, 350 MG, 150ML 150ML was us ed for 15:30:53 injections. 15:31:06 HR=57 bpm, ANDY=425/105 mmhg, XjV1=924.0 %, Resp=19 B/min, Pain=0, Vasile=10, Padilla=2 Recorded Pressure: Ao, HR=58, Condition=Condition 1 15:31:36 (Aorta) Ao 169/96/127 15:31:43 The LCA was injected and visualized at various angles. OMNIPAQUE, 350 MG, 150ML 150ML used . 15:33:26 Catheter was removed 15:33:29 Case End (Physician broke scrub) Assessment: Final Case, HR=61 BPM, Rhythm=NSR, HTIT=987/95 mmhg, Chest Pain=0, Edema=None, Mason r=Normal, Skin = Warm, Dry Right Pulses: Morgan Ped=2, Femoral=3 15:33:34 Left Pulses: Morgan Ped=2, Femoral=3 Neurological: State=Alert, Ox3, TAYLOR Respiration: Resp=15 B/min, SpO2=99 % 15:33:48 Catheter(s) removed without difficulty 15:33:54 HR=54 bpm, RXIY=712/95 mmhg, SpO2=98.0 %, Resp=15 B/min, Pain=0, Vasile=10, Padilla=2 15:33:57 No case complications noted. 15:33:58 Cine recording checked. 15:33:59 Bedside Report will be given. 15:34:01 Verbal Stimulation=2 Physical Stimulation=2 Airway=2 Respiration=2 TOTAL=8. (0=absent, 1=li mited, 2=present) 15:34:15 A Left Heart Cath was performed. 15:35:10 HR=58 bpm, PJFH=967/89 mmhg, SpO2=98.0 %, Resp=15 B/min, Pain=0, Vasile=10, Padilla=2 15:36:59 Sheath removed; pressure applied to access site. 15:37:04 HR=57 bpm, NWKR=345/97 mmhg, SpO2=98.0 %, Resp=16 B/min, Pain=0, Vasile=10, Padilla=2 15:39:03 HR=54 bpm, PMNZ=415/95 mmhg, SpO2=98.0 %, Resp=13 B/min, Pain=0, Vasile=10, Padilla=2 15:41:43 HR=51 bpm, PUMZ=603/95 mmhg, SpO2=97.0 %, Resp=14 B/min, Pain=0, Vasile=10, Padilla=2 15:43:03 HR=49 bpm, IZOP=341/89 mmhg, SpO2=98.0 %, Resp=16 B/min, Pain=0, Vasile=10, Padilla=2 15:44:51 HR=50 bpm, HLRC=247/89 mmhg, SpO2=97.0 %, Resp=18 B/min, Pain=0, Vasile=10, Padilla=2 15:47:31 HR=49 bpm, KBAA=670/90 mmhg, SpO2=98.0 %, Resp=17 B/min, Pain=0, Vasile=10, Padilla=2 15:50:44 HR=48 bpm, YLBI=264/85 mmhg, SgC7=259.0 %, Resp=18 B/min, Pain=0, Vasile=10, Padilla=2 15:51:51 HHAN=679/85 mmhg, SpO2=97.0 %, Pain=0, Vasile=10, Padilla=2 15:52:08 Sterile dressing applied to site 15:52:13 Vitals capture stopped. 15:52:15 Patient moved to stretcher End Study - Contrast Media Used In Study Contrast Total Opened (mL) Total Used (mL) Total Wasted (mL) Omnipaque 40 40 0 End Study - Maximum Contrast Load Max Contrast Load (mL) 445.8 End Study - Radiation Exposure Fluoro Time (minutes) 0.9 End Study - Patient Disposition Complications Transferred To Interventional Outcome No [facility] Holding No attempt made
--- NOTE | 2018-02-11 16:03 | HHI.PR ---
Subjective Remarks Follow-up on patient with chest pain. Patient seen and examined. Patient continues to have complaints of substernal nonradiating chest tightness. He is not sure if it is related to his anxiety. He denies any associated shortness of breath, palpitations, nausea, vomiting or diaphoresis. He denies any lateralizing symptoms. Objective Vitals Vital Signs Date Time Temp Pulse Resp B/P (MAP) Pulse Ox O2 Delivery O2 Flow Rate FiO2 02/11/18 08:13 97.6 68 16 135/85 (102) 100 02/11/18 05:25 15 02/11/18 05:15 45 02/11/18 04:20 97.3 53 16 134/87 (103) 100 02/11/18 04:03 62 16 151/92 (111) 100 02/11/18 01:00 45 02/10/18 23:57 97.5 53 16 121/78 (92) 99 02/10/18 23:39 02/10/18 23:00 68 16 136/75 (95) 98 Room Air 02/10/18 21:19 146/99 (115) 143/89 (107) 02/10/18 21:19 100 Room Air 02/10/18 21:12 61 16 166/155 (159) 99 Room Air 02/10/18 20:58 64 24 177/96 (123) 100 I/O 02/10/18 02/10/18 02/10/18 02/11/18 02/11/18 02/11/18 06:59 14:59 22:59 06:59 14:59 22:59 Intake Total 500 ml Balance 500 ml Intake IV Total 500 ml Result Diagram: 02/11/18 0443 02/11/18 044 Objective Remarks GENERAL: Well-developed well-nourished male sitting up in bed, INAD. Awake and alert. Appears comfortable. is at the bedside. SKIN: Warm and dry. No generalized rash. HEAD: Atraumatic. Normocephalic. EYES: Pupils equal round and reactive. Extraocular motions intact. No scleral icterus. No injection or drainage. ENT: Nose without bleeding or purulent drainage. Airway patent. MMM. NECK: Trachea midline. CARDIOVASCULAR: Regular rate and rhythm without murmurs, gallops, or rubs. RESPIRATORY: Clear to auscultation. Breath sounds equal bilaterally. No wheezes , rales, or rhonchi. GASTROINTESTINAL: Abdomen soft, non-tender, nondistended. No guarding. MUSCULOSKELETAL: Extremities without clubbing, cyanosis, or edema. No calf tenderness. NEUROLOGICAL: Awake and alert. Cranial nerves II through XII grossly intact. Motor and sensory grossly within normal limits. No focal neurologic finding appreciated. Normal speech. PSYCHIATRIC: Appropriate mood and affect. Normal judgment and insight appear A/P Assessment and Plan 42-year-old male with no significant past medical history presents the emergency department for the evaluation of chest tightness. NSTEMI EKG shows sinus bradycardia without ST segment elevations or depressions, personally reviewed Troponin 0.08, 0.07, 0.04 Cardiology consulted, appreciate assistance. Keep n.p.o. Plan for left heart catheterization. Heparin bolus and drip Nitro ASA and Lipitor daily Continue to monitor on cardiac telemetry Obtain lipid profile Bradycardia, asymptomatic, chronic per patient report Will not start beta-maximino therapy secondary to bradycardia, will defer to cardiology Monitor Acute kidney injury BUN/creatinine 23/1.37 No baseline for comparison Resolved status post IV fluid hydration Avoid nephrotoxic agent Monitor renal function DVT prophylaxis Patient on heparin drip Discharge Planning Not ready for discharge. Discharge pending left heart catheterization and cardiology clearance Renuka Kent Feb 11, 2018 16:03
--- NOTE | 2018-02-11 16:06 | MA ---
cc: Magdiel Huitron MD DATE: 02/11/2018 DATE: 02/11/2018. INDICATIONS FOR PROCEDURE: Non-STEMI coronary artery disease, [place] Cardiovascular Society Class IV angina. PROCEDURAL STATEMENTS: The patient was brought to the cardiac catheterization laboratory, prepped and draped in the usual sterile fashion. 10 mL of 1% lidocaine was used for local anesthetic the right common femoral artery, a 4-American sheathed placed in the right common femoral artery. 4-American JR4 and JL4 catheters were used to perform left and right coronary angiography and left ventriculography. FINDINGS: LV pressure is 170/15-16, EF 60%. Right coronary artery is nondominant. It has severe disease in the mid to distal segment up to 70% angiographically. The left main coronary has no significant disease angiographically. LAD: Transapical, mild diffuse disease in the proximal segment up to 20% angiographically. The first diagonal artery is small, 1.5 mm reference vessel diameter. Mild disease in the proximal segment up to 20% angiographically. Second and third diagonal arteries are small 0.5-1 mm vessels with no significant disease angiographically. Left circumflex vessel is a large, dominant vessel, has mild disease in the proximal segment up to 20% angiographically. Also, in the distal segment, just proximal to the crux, has mild diffuse disease up to 20-30% angiographically. The first obtuse marginal vessel is a small vessel, 0.5 mm with no significant disease angiographically. Second obtuse marginal vessel of medium size to large vessel, 2.75-3 mm diameter; no significant disease angiographically. There are 3 posterolateral arteries which are 1.0-1.75 mm vessels with no significant disease angiographically. The left PDA is a 2.5 mm vessel with no significant disease angiographically. CONCLUSION: 1. Angiographically mild 2-vessel disease in a left dominant system. The right coronary artery is nondominant. It does have 70% stenosis, but it is nondominant. 2. Normal left ventricular systolic function with ejection fraction of 60%. RECOMMENDATIONS: Recommend medical management of coronary artery disease, cardiac risk factor modification. Magdiel Huitron MD AWC/SB , 03:40 PM , 04:05 PM
--- NOTE | 2018-02-11 16:22 | HHI.DCPOC ---
Discharge Care Plan Diagnosis: (1) Coronary artery disease (2) Acute kidney injury (3) Chest pain (4) Elevated troponin (5) NSTEMI (non-ST elevated myocardial infarction) Goals to Promote Your Health * To prevent worsening of your condition and complications * To maintain your health at the optimal level Directions to Meet Your Goals Take your medications as prescribed Follow your dietary instruction Follow activity as directed Keep your appointments as scheduled Take your immunizations and boosters as scheduled If your symptoms worsen call your PCP, if no PCP go to Urgent Care Center or Emergency Room Smoking is Dangerous to Your Health. Avoid second hand smoke Call the 24-hour hour crisis hotline for domestic abuse at Renuka Kent Feb 11, 2018 16:22
[2018-02-11] MEDS ORDERED: ECASA81 PO (16:45)
[2018-02-11] MEDS ORDERED: LISI-519 PO (16:45)
[2018-02-11] MEDS ORDERED: LIPI40TA PO (16:45)
[2018-02-11 18:16] LABS: CHOLESTEROL/ HDL RATIO 3.31 RATIO; HDL CHOLESTEROL 46.1 MG/DL (40.0-60.0)
[2018-02-12] MEDS ORDERED: ASPIRIN EC 81 MG TABEC PO SCH (09:00)
[2018-02-12] MEDS ORDERED: ATORVASTATIN 80 MG TAB PO SCH (09:00)
[2018-02-14] MEDS ORDERED: IOHEXOL 350 MG/ML 50 ML BTL (for Cath Lab) OTHER ONE (06:54)
== END 2018-02-11 18:00 | disposition home or self-care (01) | DRG 281 ==
LOC: NEPC 20:38 → NEDA 22:45 → NEPHCDU 23:47 → HCIS 02-11 16:43
PROVIDERS: ADMIT Family Medicine; ATTEND Family Medicine
PROC: B2151ZZ Fluoroscopy of Left Heart using Low Osmolar Contrast (ICD-10-PCS; principal; 2018-02-11)
PROC: B2111ZZ Fluoroscopy of Multiple Coronary Arteries using Low Osmolar Contrast (ICD-10-PCS; 2018-02-11)
DX: I21.4 Non-ST elevation (NSTEMI) myocardial infarction (principal); N17.9 Acute kidney failure, unspecified; R00.1 Bradycardia, unspecified; I25.10 Atherosclerotic heart disease of native coronary artery without angina pectoris; Z82.49 Family history of ischemic heart disease and other diseases of the circulatory system; Z91.013 Allergy to seafood
CPT/HCPCS: 80048; 80053; 80061; 82550; 82552; 83735; 84484; 85002; 85025; 85610; 85730; 93005; 93458; 96360; 99152; C1769; C1893; J1200; J1644; J2250; J2930; J3010; J7030; J7040; Q9967